=== PATIENT | male | born 1995 | race Caucasian/White ===

== ENCOUNTER 2017-12-20 20:01 | Emergency (ER) | payer BC, OTHER ==
[~2017-12-20] VITALS: Ht 165.1 cm; Wt 79.6 kg
[2017-12-20 20:08] VITALS: TEMP 37.7; Ht 165.1 cm; Wt 79.6 kg
[2017-12-20] MEDS ORDERED: SODIUM CHLORIDE 0.9% 1000ML 1,000 ML IV STA (20:38)
[2017-12-20] MEDS ORDERED: KETOROLAC TROMETHAMINE 30 MG/ML VIAL IV STA (20:38)
[2017-12-20] MEDS ORDERED: CLINDAMYCIN IV 900 MG in DEXTROSE 5% 100ML 100 ML IV ONE (20:45)
[2017-12-20] MEDS ORDERED: DEXAMETHASONE **PF** INJ 10 MG/ML VIAL IV ONE (20:45)
[2017-12-20 21:05] LABS: BASO % 0.4 %; BASO ABS # 0.05 K/uL (0-0.2); EOS % 1.8 %; EOS ABS # 0.25 K/uL (0-0.5); HEMATOCRIT 44.8 % (42-52); HEMOGLOBIN 15.4 g/dL (14.0-18.0); IG# 0.09 K/uL (0.00-0.02); LYMPH % 23.4 %; LYMPH ABS # 3.25 K/uL (1.2-3.4); MEAN CELL VOLUME 91.2 fL (80-100); MEAN CORPUSCULAR HEMOGLOBIN 31.4 pg (25-34); MEAN CORPUSCULAR HGB CONC 34.4 g/dl (32-36); MEAN PLATELET VOLUME 9.8 fL (7.4-10.4); MONO % 13.1 %; MONO ABS # 1.82 K/uL (0.11-0.59); NEUT % 60.7 %; NEUT ABS # 8.42 K/uL (1.4-6.5); PLATELET COUNT 217 K/uL (130-400); RED CELL DISTRIBUTION WIDTH CV 13.7 % (11.5-14.5); RED CELL DISTRIBUTION WIDTH SD 45.4 fL (36.4-46.3); WHITE BLOOD COUNT 13.88 K/uL (4.8-10.8)
[2017-12-20 21:24] LABS: CREATININE 0.88 mg/dl (0.60-1.40); POTASSIUM 3.4 mmol/L (3.5-5.1)
[2017-12-20] MEDS ORDERED: CLIN300C2 PO (22:00)
[2017-12-20] MEDS ORDERED: OXYC-90 PO (22:00)
[2017-12-20] MEDS ORDERED: PRED50TA PO (22:03)
[2017-12-20] MEDS ORDERED: CLINDAMYCIN 150MG HOME PACK PO ONE (22:15)
[2017-12-20] MEDS ORDERED: OXYCODONE IR HOME PACK PO ONE (22:15)
[2017-12-20 22:44] VITALS: BP 117/60; PULSE 88; O2SAT 94
--- NOTE | 2017-12-20 23:53 | EMERGENCY ROOM VISIT NOTE ---
History First contact with patient: 20:15 Chief Complaint: THROAT PAIN/INJURY Stated Complaint: CAN'T EAT OR DRINK,THROAT PROBLEM History of Present Illness The patient is a 22 year old male who presents to the Emergency Room with complaints of recurrent right throat pain and swelling. The patient reports that he [place] the [place] in the [place]. The patient reports that he had an I&D procedure performed. The patient reports that the swelling and pain resolved. His pain started 2 days ago. He is having difficulty swallowing because of the discomfort. He rates his pain a 3 out of 10. The patient has not checked his oral temperature, but denies any fever or chills. He denies any recent runny nose, congestion or cough. He denies any history of recurrent strep throat as a child. Review of Systems HEENT: Denies dizziness, visual problems, hearing loss, tinnitus. PULMONARY: Denies cough, shortness of breath, sputum production or hemoptysis. CARDIOVASCULAR: Denies chest pain, palpitations, dyspnea on exertion, orthopnea or peripheral edema. GASTROINTESTINAL: Denies diarrhea, constipation, nausea, vomiting, or abdominal pain. GENITOURINARY: Denies dysuria, frequency, urgency or nocturia. NEUROLOGIC: Denies history of epilepsy, CVA, TIA or chronic headaches. MUSCULOSKELETAL: Denies history of joint tenderness/swelling. SKIN: Denies rashes or lesions. PSYCHIATRIC: Denies history of depression or mental illness. ENDOCRINE: Denies history of diabetes or thyroid disorders. Past Medical/Surgical History Medical Problems: (1) Tonsillar abscess Family History No significant family history Social History Smoking Status: Current Every Day Smoker Alcohol Use: none Marital Status: single Housing Status: lives with significant other Occupation Status: employed Current/Historical Medications Scheduled Clindamycin Hcl (Cleocin), 300 MG PO QID Prednisone (Prednisone), 50 MG PO DAILY Scheduled PRN Oxycodone Ir (Roxicodone Ir), 1 TAB PO Q4H PRN for Pain Physical Exam Vital Signs Date Time Temp Pulse Resp B/P (MAP) Pulse Ox O2 Delivery O2 Flow Rate FiO2 12/20/17 22:44 88 117/60 94 12/20/17 22:20 83 110/71 96 Room Air 12/20/17 21:15 84 142/66 95 Room Air 12/20/17 20:08 37.7 98 16 144/75 98 Room Air Physical Exam CONSTITUTIONAL: Healthy and well nourished. Alert and oriented X 3 with positive affect. Patient appears in mild discomfort from pain. HEENT: Normocephalic, atraumatic. Pupils equal, round and reactive. No facial edema noted. Ears and nares are clear. No conjunctival injection or scleral icterus. OROPHARYNX: Patient has asymmetric right tonsillar hypertrophy. Uvula is midline. Negative trismus. White tonsillar exudates are noted. NECK: Full active range of motion without discomfort. Patient has mild right anterior cervical chain adenopathy. RESPIRATORY: Clear to auscultation bilaterally with no wheezing, crackles, rhonchi or stridor. CARDIOVASCULAR: Regular rate and rhythm with no murmurs, rubs or gallops. GASTROINTESTINAL: Bowel sounds present in all quadrants. Soft and nontender to palpation. No hepatosplenomegaly. MUSCULOSKELETAL: Full range of motion of all joints without discomfort. INTEGUMENTARY: No rash or other significant dermatologic conditions noted. HEMATOLOGIC: No ecchymosis or petechiae. NEUROLOGIC: No focal neurologic deficits noted. Facial sensations are intact. Medical Decision & Procedures Laboratory Results 12/20/17 20:50 Red Blood Count 4.91, Mean Corpuscular Volume 91.2, Mean Corpuscular Hemoglobin 31.4, Mean Corpuscular Hemoglobin Concent 34.4, Mean Platelet Volume 9.8, Neutrophils (%) (Auto) 60.7, Lymphocytes (%) (Auto) 23.4, Monocytes (%) (Auto) 13.1, Eosinophils (%) (Auto) 1.8, Basophils (%) (Auto) 0.4, Neutrophils # (Auto ) 8.42, Lymphocytes # (Auto) 3.25, Monocytes # (Auto) 1.82, Eosinophils # (Auto ) 0.25, Basophils # (Auto) 0.05 12/20/17 20:50 Test 12/20/17 20:50 White Blood Count 13.88 K/uL (4.8-10.8) Red Blood Count 4.91 M/uL (4.7-6.1) Hemoglobin 15.4 g/dL (14.0-18.0) Hematocrit 44.8 % (42-52) Mean Corpuscular Volume 91.2 fL (80-100) Mean Corpuscular Hemoglobin 31.4 pg (25-34) Mean Corpuscular Hemoglobin Concent 34.4 g/dl (32-36) Platelet Count 217 K/uL (130-400) Mean Platelet Volume 9.8 fL (7.4-10.4) Neutrophils (%) (Auto) 60.7 % Lymphocytes (%) (Auto) 23.4 % Monocytes (%) (Auto) 13.1 % Eosinophils (%) (Auto) 1.8 % Basophils (%) (Auto) 0.4 % Neutrophils # (Auto) 8.42 K/uL (1.4-6.5) Lymphocytes # (Auto) 3.25 K/uL (1.2-3.4) Monocytes # (Auto) 1.82 K/uL (0.11-0.59) Eosinophils # (Auto) 0.25 K/uL (0-0.5) Basophils # (Auto) 0.05 K/uL (0-0.2) RDW Standard Deviation 45.4 fL (36.4-46.3) RDW Coefficient of Variation 13.7 % (11.5-14.5) Immature Granulocyte % (Auto) 0.6 % Immature Granulocyte # (Auto) 0.09 K/uL (0.00-0.02) Anion Gap 6.0 mmol/L (3-11) Est Creatinine Clear Calc Drug Dose 130.2 ml/min Estimated GFR () 143.3 Estimated GFR (Non- 123.7 BUN/Creatinine Ratio 18.6 (10-20) Calcium Level 9.0 mg/dl (8.5-10.1) The above labs were reviewed. The patient does have a mild leukocytosis with left shift and bandemia. Potassium is 3.4. Medications Administered Medications (Trade) Dose Ordered Sig/Luis Eduardo Route Start Time Stop Time Status Last Admin Dose Admin Clindamycin Phosphate 900 mg/ Dextrose 106 ml @ 100 mls/hr ONE ONCE IV 12/20/17 20:45 12/20/17 21:48 DC 12/20/17 21:07 100 MLS/HR Ketorolac Tromethamine (Toradol Inj) 30 mg NOW STAT IV 12/20/17 20:38 12/20/17 20:40 DC 12/20/17 21:07 30 MG Dexamethasone Sodium Phosphate (Dexamethasone Inj Pf) 10 mg NOW ONCE IV 12/20/17 20:45 12/20/17 20:48 DC 12/20/17 21:07 10 MG Sodium Chloride 1,000 ml @ 999 mls/hr Q1H1M STAT IV 12/20/17 20:38 12/20/17 21:38 DC 12/20/17 21:08 999 MLS/HR Clindamycin HCl (Cleocin 150MG Home Pack) 1 homepack UD ONCE PO 12/20/17 22:15 12/20/17 22:16 DC 12/20/17 22:35 1 HOMEPACK Oxycodone HCl (Roxicodone Immediate Rel 5MG Home Pack) 1 homepack UD ONCE PO 12/20/17 22:15 12/20/17 22:16 DC 12/20/17 22:36 1 HOMEPACK Procedure 1. IV hydration: The patient was administered a normal saline 1 L bolus 2. IV medications: Toradol 30 mg and Decadron 10 mg IVP. The patient was also administered clindamycin 900 mg IV infusion. ED Course Patient history and physical exam were performed. Nurse's notes were reviewed. Vital signs were reviewed. The patient is febrile with a temperature 37.7C. He has not tachycardic or hypotensive. The patient has no trismus currently. IV access was established, and labs were drawn, showing a mild leukocytosis with left shift and bandemia. The patient was hydrated with normal saline, and received IV Toradol and Decadron, along with IV clindamycin antibiotics. The patient did report improvement of his pain. He will be provided a home pack and prescription for OxyIR and clindamycin, along with prescriptions for the same, along with prednisone. The patient was provided contact information for Dr. Oneal, ENT international travel consultant. I also asked our Hat Band Attacher to call his office in the morning to arrange follow-up before the weekend. The patient was instructed to return to the emergency department for any progressively worsening swelling or pain and becomes more severe with opening of the mouth. He was encouraged alternate ibuprofen and Tylenol for additional baseline pain relief. The patient was happy with plan of care, voiced understanding of all discharge instructions, and denied any discomfort at the time of discharge. Medical Decision Patient has evidence for early tonsillar abscess. He currently has no trismus, therefore emergent ENT consultation was not deemed necessary. The patient will be treated with IV and outpatient antibiotics, corticosteroids and analgesics. The patient was asked to follow-up with ENT for further reevaluation. Clinical exam at this time is not consistent with Senthil's angina or retropharyngeal abscess. The patient has recently had a tonsillar I&D. The patient may ultimately require tonsillectomy. [employer] Drug Monitoring Program Search Results: patient reviewed within database, no issues identified Medication Reconcilliation Current Medication List: was personally reviewed by me Blood Pressure Screening Patient's blood pressure: Normal blood pressure Impression Primary Impression: Tonsillar abscess Departure Information Dispostion Home / Self-Care Condition FAIR Prescriptions Prednisone (Prednisone) 50 Mg Tab 50 MG PO DAILY for 4 Days, #4 TAB Prov: Jaylon Ashby PA 12/20/17 Oxycodone Ir (Roxicodone Ir) 5 Mg Tab 1 TAB PO Q4H Y for Pain, #15 TAB For Initial Treatment Prov: Jaylon Ashby PA 12/20/17 Clindamycin Hcl (CLEOCIN) 300 Mg Cap 300 MG PO QID for 10 Days, #40 CAP Prov: Jaylon Ashby PA 12/20/17 Referrals Sree Oneal D.O. Forms HOME CARE DOCUMENTATION FORM, IMPORTANT VISIT INFORMATION Patient Instructions My [facility] Additional Instructions Complete all clindamycin antibiotics as prescribed. Take prednisone as prescribed - next dose tomorrow evening. Ibuprofen 800 mg and/or Tylenol 1000 mg every 8 hours. You may also alternate these medications for more effective pain relief: Ibuprofen --4 HRS--> Tylenol --4 HRS--> ibuprofen --4 HRS--> Tylenol .... OxyIR if needed for worse pain. Do not drink alcohol or drive while taking OxyIR. Follow-up with ENT (Dr. Oneal) for further reevaluation and management. Call his office tomorrow and let them know that you have an early tonsillar abscess that was evaluated in the emergency department.
== END 2017-12-20 21:44 | disposition home or self-care (01) ==
LOC: C.EDB 20:02 → C.EDD 21:44
DX: J36 Peritonsillar abscess (principal); F17.200 Nicotine dependence, unspecified, uncomplicated